=== PATIENT | female | born 1985 | race Caucasian/White ===

== ENCOUNTER 2019-09-25 05:43 | Inpatient (IN) ==
--- NOTE | 2019-09-24 13:44 | History and Physical Report ---
DATE OF ADMISSION: 09/25/2019 REASON FOR ADMISSION: Planned repeat section. BRIEF HISTORY: Olga is a 34-year-old G2, P1-0-0-1, who will be admitted at 40 weeks 5 days gestational age for planned repeat section. Of note, the patient has a prior section for breech presentation which was a low transverse incision on the uterus. Today, the patient reports that she is doing well without any significant complaints today. She did have a fall prior to coming, but had a reactive NST and is not having any symptoms of abruption otherwise. Patient was denying any contractions, vaginal bleeding, leakage of fluid, and reporting good movement at time of presentation today. COMPLICATIONS: 1. History of x1 performed for breech presentation. 2. BMI of 45. COURSE: The patient presented for care at her regular first trimester time. The patient's course has been relatively uncomplicated, has noted normal blood pressures throughout, negative glucosuria and proteinuria throughout her . PAST MEDICAL HISTORY: Significant for PCOS. PAST SURGICAL HISTORY: Significant for 1. x1. 2. Ankle surgery. 3. Cameron tooth extraction. FAMILY HISTORY: Noncontributory to current admission. SOCIAL HISTORY: The patient denies tobacco, alcohol or illicit drug use. PHYSICAL EXAMINATION: VITAL SIGNS: Blood pressure today 122/74. GENERAL: The patient is well appearing in no acute distress, alert and oriented x3. CARDIAC: Showed regular rate and rhythm. LUNGS: Showed no labored breathing. ABDOMEN: Soft, nontender, gravid with fundal height of 40 cm. The was noted to be cephalic on Damon's. The patient underwent an NST which was reactive. EXTREMITIES: Lower extremities were unremarkable bilaterally. ALLERGIES: 1. AMOXICILLIN. 2. CEPHALOSPORINS. CURRENT MEDICATIONS: vitamins. ASSESSMENT AND PLAN: Ms. Espinoza is a 34-year-old G2, P1-0-0-1, will be admitted at 40 weeks 5 days gestational age for planned section. 1. Fetus reactive NST today. 2. Labor. The patient not in labor. She would like a TOLAC if she does go into spontaneous labor. Otherwise, will continue to proceed with tomorrow morning. Consents were reviewed and signed in clinic today. All questions answered to patient's satisfaction. Risks, benefits and alternatives were discussed. 3. Vitals normal today. 4. hemorrhage risk, considered moderate risk secondary to the patient's prior section. 5. GBS negative. MTDD
[2019-09-25] MEDS ORDERED: LACTATED RINGER'S 1,000 ML IV SCH ×3 (06:00→11:24)
[2019-09-25] MEDS ORDERED: CLINDAMYCIN 900 MG in DEXTROSE 5% 50 ML IV SCH (06:00)
[2019-09-25] MEDS ORDERED: GENTAMICIN SULFATE 180 MG in DEXTROSE 5% 100 ML IV SCH (06:00)
[2019-09-25] MEDS ORDERED: CITRIC ACID/SODIUM CITRATE 15 ML UDC PO SCH ×2 (06:00)
[2019-09-25] MEDS ORDERED: SODIUM CHLORIDE 0.9% 250 ML IV PRN (06:06)
[2019-09-25 06:44] LABS: Basophils # (auto) 0.02 K/uL (0-0.2); Basophils % (auto) 0.2 %; Eosinophils # (auto) 0.09 K/uL (0-0.5); Eosinophils % (auto) 0.8 %; Hematocrit (blood only) 38.5 % (37-47); Hemoglobin 12.8 g/dL (12.0-16.0); Immature Granulocytes % (auto) 0.9 %; Lymphocytes # (auto) 1.79 K/uL (1.2-3.4); Lymphocytes % (auto) 16.9 %; Mean Corpuscular Hemoglobin 30.3 pg (25-34); Mean Corpuscular Volume 91.2 fL (80-100); Mean Platelet Volume 10.4 fL (7.4-10.4); Monocytes % (auto) 7.5 %; Neutrophils # (auto) 7.81 K/uL (1.4-6.5); Neutrophils % (auto) 73.7 %; Platelet Count 219 K/uL (130-400); RDW Coefficient of Variation 13.3 % (11.5-14.5); RDW Standard Deviation 44.2 fL (36.4-46.3); Red Blood Count 4.22 M/uL (4.2-5.4); White Blood Count 10.61 K/uL (4.8-10.8)
[2019-09-25 06:47] LABS: Mean Corpuscular Hgb Conc 33.2 g/dL (32-36)
[2019-09-25] MEDS ORDERED: fentaNYL citrate 100 MCG/2 ML VIAL ONE (06:56)
[2019-09-25] MEDS ORDERED: MoRPHine SULFATE PF 1 MG/ML 10 ML AMP/VIAL ONE (06:56)
--- NOTE | 2019-09-25 07:01 | Anesthesiology Consultation ---
Date of Service September 25, 2019 Assessment & Plan (1) Encounter for pre-operative examination: Chart Review Chart Review: Acceptable Risk for Surgery and Patient NOT seen in Pre Admission Testing Consults Requested none History Surgery Operation Date: 09/25/19 07:30 Proposed Procedures p Section in LD - Denny Naik MD Height/Weight Height: 5 ft 5 in Weight: 121.563 kg Allergies Allergy/AdvReac Type Severity Reaction Status Date / Time amoxicillin Allergy Hives Verified 09/24/19 08:42 cefaclor [From Ceclor] Allergy Hives Verified 09/24/19 08:42 Penicillins Allergy Hives Verified 09/25/19 06:00 Medications Home Medications Medication Instructions Recorded Confirmed Last Taken [id number] fum-folic [id number] 1 tab PO DAILY 04/23/19 09/25/19 09/24/19 20:30 Active Medications Generic Name Dose Route Start Last Admin Trade Name Freq PRN Reason Stop Dose Admin Gentamicin Sulfate 180 mg/ 104.5 mls @ 100 mls/hr 09/25/19 06:00 09/25/19 06:43 Dextrose IV 09/25/19 07:03 100 mls/hr PREOP KHOI Administration Past Medical History Medical History PCOS (polycystic ovarian syndrome) Exercise / Class Metabolic Activity II 4-5 Yardwork/Stairs/Walk up hill Past Family History Family History Grandfather (Paternal) Diabetes Father Hypertension Hypercholesterolemia Grandmother (Maternal) Ovarian cancer maternal great grandmother Multiple gestation maternal great grandmother Grandmother (Paternal) Thyroid disease Mother Thyroid disease Other Endometriosis Past Surgical History Surgical History History of ankle surgery Left History of section 2010 [facility]-breech S/P wisdom tooth extraction Past Anesthesia History No Hx of Anesthesia Complications and No Family Hx of Anesthesia Complications History of PONV No Hx of PONV and No Hx of Motion Sickness Social History Smoking Status: Never smoker Do You Dip or Chew Tobacco: No Hx Alcohol Use: No Alcohol type: wine and hard liquor alcohol intake frequency: holidays/special occasions only Hx Substance Use: No substance use type: does not use Physical Exam Vital Signs Last Vital Signs Temp 36.4 C L 09/25/19 06:03 Pulse 95 H 09/25/19 05:56 Resp 18 09/25/19 06:03 BP 125/77 09/25/19 06:03 Testing Laboratory Results 09/25/19 06:29
--- NOTE | 2019-09-25 07:33 | History & Physical Bridge Note ---
Date of Service September 25, 2019 History & Physical Bridge Note I have examined the patient, reviewed the History & Physical and in the interval since the performance of the History & Physical I have noted the following changes of clinical significance: no changes noted
[2019-09-25] MEDS ORDERED: KETOROLAC 30 MG/ML VIAL IV PRN (08:26)
[2019-09-25] MEDS ORDERED: MEPERIDINE HCL 25 MG/ML CARP IV PRN (08:26)
[2019-09-25] MEDS ORDERED: LACTATED RINGER'S 500 ML IV PRN (08:26)
[2019-09-25] MEDS ORDERED: DiphenhydrAMINE HCL 50 MG/ML VIAL IV PRN (08:26)
[2019-09-25] MEDS ORDERED: NALOXONE HCL 0.4 MG/1 ML VIAL/CARP IV PRN (08:26)
[2019-09-25] MEDS ORDERED: ONDANSETRON INJ 2 MG/ML 2 ML VIAL IV PRN (08:26)
[2019-09-25] MEDS ORDERED: ePHEDrine sulfate 50 MG/ML AMP IV PRN (08:26)
[2019-09-25] MEDS ORDERED: NALOXONE HCL 0.08 MG in SYRINGE 1.8 ML IV PRN (08:26)
[2019-09-25] MEDS ORDERED: NALOXONE HCL 1 MG in SODIUM CHLORIDE 0.9% 1000ML 1,000 ML IV PRN (08:26)
[2019-09-25] MEDS ORDERED: MoRPHine SULFATE 2 MG/ML CARP IV PRN (08:26)
[2019-09-25] MEDS ORDERED: MoRPHine SULFATE PF 1 MG/ML 10 ML AMP/VIAL INT SPINAL ONE (08:26)
[2019-09-25] MEDS ORDERED: NALBUPHINE HCL INJ 10 MG/ML AMP IV PRN (08:26)
[2019-09-25] MEDS ORDERED: SODIUM CHLORIDE 0.9% 1000ML 1,000 ML IV SCH (08:30)
[2019-09-25] MEDS ORDERED: DC INTRASPINAL MORPHINE SCH (08:30)
[2019-09-25] MEDS ORDERED: NO NARCOTICS OR SEDATIVES SCH (08:30)
[2019-09-25] MEDS ORDERED: OXYTOCIN 10 UNITS/ML VIAL ONE (08:32)
[2019-09-25] MEDS ORDERED: PHENYLEPHRINE 100MCG/ML 5ML SYR ONE (08:46)
[2019-09-25] MEDS ORDERED: ONDANSETRON INJ 2 MG/ML 2 ML VIAL ONE (08:50)
--- NOTE | 2019-09-25 09:35 | Post Operative Brief Note ---
PG Immediate Post Op with CF Date of Surgery September 25, 2019 Pre & Post Diagnosis Operation Date: 09/25/19 07:30 Pre-Op Diagnosis: Previous Section Term Post-Op Diagnosis: Same as Pre op I identified the patient and participated in the time-out.: Yes Procedure Operation Date: 09/25/19 07:30 Actual Procedures p Repeat Section in LD for a viable baby girl at [address] Naik[address]Not Applicable) - Denny Naik MD Surgeon Denny Naik MD Law Clerk Dr. Crespo Estimated Blood Loss 500 Findings Consistent with Post-Op Diagnosis Specimens Specimen Description: A: Placenta (Hold) B: Cord Blood Drains Rowe Catheter (inserted prior to procedure and draining clear yellow urine. Rowe being monitored by anesthesia during procedure.)
--- NOTE | 2019-09-25 09:45 | Anesthesiology Progress Note ---
Date of Service September 25, 2019 Anesthesia Post Procedure Vital Signs Vital Signs: Temp Pulse Resp BP Pulse Ox 09/25/19 09:42 73 99 09/25/19 09:37 86 119/60 98 09/25/19 06:03 36.4 C L 18 125/77 09/25/19 05:56 36.4 C L 95 H 18 125/77 Transfer of Care Handoff Completed per policy Notes Mental Status: alert / awake / arousable and participated in evaluation Patient Amnestic to Procedure: No Nausea / Vomiting: adequately controlled Pain: adequately controlled Airway Patency, RR, SpO2: stable & adequate BP & HR: stable & adequate Hydration State: stable & adequate Neuraxial Anesthesia: was administered and sensory block is resolving Anesthetic Complications: no major complications apparent and Pt Satisfied with anesthetic care
--- NOTE | 2019-09-25 11:08 | Operative Report ---
DATE OF OPERATION: 09/25/2019 PROCEDURE: Repeat low transverse section. SURGEON: Denny Naik MD TICKET AGENT: Chloé Crespo DO. PREOPERATIVE DIAGNOSES: 1. Single intrauterine at term. 2. History of prior with plan to repeat. POSTOPERATIVE DIAGNOSES: 1. Single intrauterine at term. 2. History of prior with plan to repeat. 3. Status post procedure. ESTIMATED BLOOD LOSS: 500 mL. DRAINS: Rowe catheter. URINE OUTPUT: Via Rowe catheter. COMPLICATIONS: None. FINDINGS: Viable female with weight pending and Apgars of 8 and 9 at 1 and 5 minutes respectively. DESCRIPTION OF PROCEDURE: The patient was taken to the operating room after consents were assured. Upon presentation, she was properly identified. Spinal anesthesia was obtained without difficulty. The patient was then prepped and draped in the normal sterile fashion. A preprocedural timeout was then performed. An incision was then made at the prior Pfannenstiel incision with a knife and was carried down to underlying fascia with the Bovie. The Bovie was then nicked at the midline with a knife and extended laterally in each direction with pickandres and Ball scissors. The fascia was then grasped with Kochers x2, elevated off the underlying rectus muscles using blunt dissection. The inferior aspect of the fascia was then grasped with Kochers x2 and elevated off the underlying rectus muscles using blunt dissection. The midline was then entered bluntly without difficulty and was placed on stretch to provide adequate room for delivery. Bladder blade was inserted. A bladder flap was created. A low transverse uterine incision was then made with a knife and the uterus was then entered bluntly. The membranes were then ruptured bluntly. The head of the was found to be in cephalic position and was delivered to the hysterotomy without difficulty. Body and shoulders quickly followed. was noted to be vigorous soon after delivery. There was noted to be meconium stained fluid at time of delivery. was noted to be vigorous upon delivery and 30-second delayed cord clamping was initiated. Cord was then double clamped and cut. was delivered to the awaiting nursery staff. Cord blood was then obtained. Attention was then turned to delivery of the placenta which was delivered intact, 3-vessel cord with gentle cord traction. The uterus was then exteriorized and several passes were made to remove any remaining membranes with a wet lap. The hysterotomy was then closed with 0 Vicryl in continuous running locked stitch. A second imbricating layer was then performed with 0 Vicryl with a single continuous stitch. The hysterotomy was then inspected and noted to be hemostatic. Posterior cul-de-sac was cleaned of clots and the debris. The uterus was then returned to the maternal abdomen and hysterotomy was reinspected and noted to begin to have continued hemostasis. Both right and left pericolic gutters were cleaned of clots and debris. The fascial muscle and subcutaneous layers were inspected and noted to be hemostatic. The fascial layer was then reapproximated with 0 Vicryl continuous running stitch. The subcutaneous layers were reapproximated with 2-0 plain in a single running stitch. The skin was reapproximated with 3-0 Vicryl on a Horace needle. Dermabond was then placed on top. Needle, sponge and instrument counts were correct at the completion of the case. Both mother and were stable in immediate post-delivery. I attest to the content of the Intraoperative Record and any orders documented therein. Any exception s are noted below.
[2019-09-25] MEDS ORDERED: DIPHTHERIA/TETANUS/PERTUSSIS 0.5 ML SYR/VIAL IM ONE (11:24)
[2019-09-25] MEDS ORDERED: HYDROCORTISONE ACETATE 25 MG SUPP PR PRN (11:24)
[2019-09-25] MEDS ORDERED: SUPERCREAM 0.870% 15 GM JAR EXT PRN (11:24)
[2019-09-25] MEDS ORDERED: MAGNESIUM HYDROXIDE SUSP 30 ML UDC PO PRN (11:24)
[2019-09-25] MEDS ORDERED: BENZOCAINE 20% AER SPR 82.5 GM CAN EXT PRN (11:24)
[2019-09-25] MEDS ORDERED: SENNA 8.6 MG TAB PO PRN (11:24)
[2019-09-25] MEDS: OXYTOCIN 30 UNITS in LACTATED RINGER'S 1,000 ML IV SCH ×2 (12:04→20:20)
[2019-09-25] MEDS: SIMETHICONE 80 MG CHEW PO SCH ×2 (14:38→20:37)
[2019-09-25] MEDS: DOCUSATE SODIUM 100 MG CAP PO SCH (20:37)
[2019-09-26] MEDS ORDERED: KETOROLAC 30 MG/ML VIAL IV PRN (02:27)
[2019-09-26] MEDS ORDERED: PROMETHAZINE HCL 25 MG in SODIUM CHLORIDE 0.9% 50 ML IV PRN (02:27)
[2019-09-26] MEDS ORDERED: DiphenhydrAMINE HCL 50 MG/ML VIAL IV PRN (02:27)
[2019-09-26] MEDS ORDERED: ONDANSETRON INJ 2 MG/ML 2 ML VIAL IV PRN (02:27)
[2019-09-26 07:05] LABS: Basophils # (auto) 0.02 K/uL (0-0.2); Basophils % (auto) 0.2 %; Hematocrit (blood only) 32.4 % (37-47); Hemoglobin 10.6 g/dL (12.0-16.0); Immature Granulocytes # (auto) 0.06 K/uL (0.00-0.02); Immature Granulocytes % (auto) 0.6 %; Lymphocytes # (auto) 1.29 K/uL (1.2-3.4); Lymphocytes % (auto) 12.6 %; Mean Corpuscular Hemoglobin 29.9 pg (25-34); Mean Corpuscular Hgb Conc 32.7 g/dL (32-36); Mean Corpuscular Volume 91.5 fL (80-100); Mean Platelet Volume 10.4 fL (7.4-10.4); Monocytes # (auto) 0.86 K/uL (0.11-0.59); Monocytes % (auto) 8.4 %; Neutrophils # (auto) 7.89 K/uL (1.4-6.5); Neutrophils % (auto) 77.2 %; Platelet Count 150 K/uL (130-400); RDW Coefficient of Variation 13.6 % (11.5-14.5); RDW Standard Deviation 45.5 fL (36.4-46.3); Red Blood Count 3.54 M/uL (4.2-5.4); White Blood Count 10.22 K/uL (4.8-10.8)
--- NOTE | 2019-09-26 07:08 | Obstetrical Progress Note ---
Date of Service September 26, 2019 Assessment & Plan (1) delivery delivered: Doing well. Nova out--void, encourage ambulation. adat. Work on breast feeding. Routine care. Day #:: 1 Subjective Ambulation: limited ambulation Voiding: nova catheter in place (just removed, no void yet) Passing Gas:: No Diet Tolerance:: clear liquids (no n/v this am, had an emesis yesterday) Lochia:: Small Feeding Type:: breast feeding Pain controlled Physical Exam Constitutional WD/WN, vitals as above Cardiovascular Extremities: + edema (trace); no calf tenderness Gastrointestinal (Abdomen) soft, nt, nd incision c/d/i ff/nt at u Psychiatric A+Ox3, euthymic affect Results & Data Vital Signs (Past 12 Hours) Vital Signs Temp Pulse Resp BP Pulse Ox 09/26/19 04:30 37.0 C 80 18 98/64 L 97 09/26/19 02:30 18 97 09/26/19 01:28 18 97 09/26/19 00:00 36.7 C 81 18 96/61 L 97 09/25/19 22:30 18 98 09/25/19 21:30 18 98 09/25/19 20:20 36.7 C 92 H 18 99/63 L 97 09/25/19 19:30 18 97
[2019-09-26] MEDS: FERROUS SULFATE 325 MG TAB PO SCH (07:27)
[2019-09-26] MEDS: OXYCODONE/ACETAMINOPHEN 5mg/325mg TAB PO PRN ×4 (07:27→22:06)
[2019-09-26] MEDS: SIMETHICONE 80 MG CHEW PO SCH ×4 (07:27→22:08)
[2019-09-26] MEDS: DOCUSATE SODIUM 100 MG CAP PO SCH ×2 (07:28→22:06)
[2019-09-26] MEDS: IBUPROFEN 600 MG TAB PO PRN ×4 (07:28→22:07)
[2019-09-26] MEDS: PRENATAL VITAMIN 1 TAB PO SCH (07:28)
[2019-09-26] MEDS ORDERED: bisacodyL 5 MG TABEC PO SCH (20:00)
[2019-09-27] MEDS: IBUPROFEN 600 MG TAB PO PRN ×4 (03:01→21:28)
[2019-09-27] MEDS: OXYCODONE/ACETAMINOPHEN 5mg/325mg TAB PO PRN ×4 (03:01→21:29)
[2019-09-27 06:04] LABS: Hematocrit (blood only) 32.8 % (37-47); Hemoglobin 10.8 g/dL (12.0-16.0)
[2019-09-27] MEDS ORDERED: bisacodyL 10 MG SUPP PR PRN (07:00)
[2019-09-27] MEDS: SIMETHICONE 80 MG CHEW PO SCH ×4 (08:15→19:41)
[2019-09-27] MEDS: FERROUS SULFATE 325 MG TAB PO SCH (08:15)
[2019-09-27] MEDS: DOCUSATE SODIUM 100 MG CAP PO SCH ×2 (08:15→19:41)
[2019-09-27] MEDS: PRENATAL VITAMIN 1 TAB PO SCH (08:15)
--- NOTE | 2019-09-27 08:16 | Obstetrical Progress Note ---
Date of Service September 27, 2019 Assessment & Plan (1) delivery delivered: 34yo s/p LTCS day 2 Doing well. Routine care Subjective Ambulation: ambulating normally Voiding: no voiding problems Passing Gas:: Yes Diet Tolerance:: regular diet Lochia:: Moderate Feeding Type:: breast feeding Current Pain Level(1-10): 2 Physical Exam Constitutional WD/WN, vitals as above Respiratory normal respiratory effort; no respiratory distress and no labored breathing Gastrointestinal (Abdomen) Inspection/Auscultation: abdomen normal to inspection and + abdominal surgical incision (C/D/I); abdomen not distended Percussion/Palpation: abdomen soft; abdomen nontender, no guarding and abdomen not rigid Genitourinary OB Exam Abdomen: + fundal height Fundus: + firm and + relation to umbilicus (Below); not tender and not boggy Results & Data Vital Signs (Past 12 Hours) Vital Signs Temp Pulse Resp BP Pulse Ox 09/26/19 23:30 36.8 C 86 14 102/63 96
--- NOTE | 2019-09-28 06:09 | Obstetrical Progress Note ---
Date of Service <Toshia Romanovaleria - Last Filed: 09/28/19 07:20> September 28, 2019 Assessment & Plan <Toshia Cosby - Last Filed: 09/28/19 07:20> (1) Encounter for care and examination after delivery: 34yo s/p LTCS day 3: - Doing well, anticipate discharge today. - Advised to use OTC hydrocortisone cream for adhesive allergy. No symptoms of anaphylaxis. Will call office if worsens. - Otherwise for follow up with Dr. Naik in 6 weeks. Day #:: 3 Subjective <Toshia Romanovaleria - Last Filed: 09/28/19 07:20> Olga is a 34 yo female ; POD # 3 following section delivery at 40 and 6 weeks; doing well this AM; no abdominal cramping/pain; voiding well, passing gas but no BM; tolerating meals overnight, able to ambulate some within the room. Some persistent spotting this morning. Pt is trying ; going well. Feeling itchy on her belly. Review of Systems Constitutional: denies fever, chills, sweats, headache Respiratory: denies SOB, difficulty breathing Cardiac: denies CP, chest palpitations, chest pressure Breast: denies breast pain : denies dysuria Physical Exam <Toshia Romanovaleria - Last Filed: 09/28/19 07:20> General: patient is alert and oriented, in NAD Cardiac: +S1/S2, no murmurs rubs or gallops Respiratory: lungs CTA b/l, anteriorly and posteriorly, no wheezes rales or rhonchi, no increased work of breathing, symmetric chest rise, no respiratory distress Abdomen: soft, NT, +bowel sounds. Skin with urticarial patches in the distribution of the adhesive for Uterus: uterine fundus firm, palpable below the level of the umbilicus. Incision intact, non-tender, non-erythematous, no weeping from incision site Lower Extremities: no LE edema or swelling, no deep calf pain, Kassy's sign negative b/l Results & Data <Toshia RomanoDO valeria - Last Filed: 09/28/19 07:20> Vital Signs (Past 12 Hours) Vital Signs Temp Pulse Resp BP Pulse Ox 09/27/19 23:00 36.7 C 75 16 114/69 09/27/19 19:45 36.9 C 86 20 109/72 97 Medications Administered Current Medications Benzocaine (Dermoplast Pain Relieving [place]) 1 appln EXT UD PRN PRN Reason: use on skin as needed Stop: 10/25/19 11:23 Cocaine HCl (Supercream 0.870%) 1 gm EXT UD PRN PRN Reason: hemmorrhoidal inflammation Stop: 10/09/19 11:23 Diphenhydramine HCl (Benadryl Capsule) 25 mg PO QID PRN PRN Reason: Itching Stop: 10/26/19 02:26 Diphenhydramine HCl (Benadryl) 25 mg IV QID PRN PRN Reason: Itching Stop: 10/26/19 02:26 Docusate Sodium (Colace) 100 mg PO DAILY@08,21 [facility] Stop: 10/25/19 20:59 Last Admin: 09/27/19 19:41 Dose: 100 mg Documented by: Ferrous Sulfate (Feosol) 325 mg PO DAILY@08 [facility] Stop: 10/26/19 07:59 Last Admin: 09/27/19 08:15 Dose: 325 mg Documented by: Hydrocortisone (Anusol Hc) 25 mg VA BID PRN PRN Reason: Hemorrhoids Stop: 10/25/19 11:23 Lactated Ringer's (Lr) 1,000 mls @ 125 mls/hr IV .Q8H KHOI Stop: 10/25/19 11:23 Promethazine HCl 25 mg/ Sodium (Chloride) 51 mls @ 204 mls/hr IV Q4H PRN PRN Reason: Nausea And Vomiting Stop: 10/26/19 02:26 Oxytocin 30 units/ Lactated (Ringer's) 1,003 mls @ 125 mls/hr IV .Q8H2M KHOI Stop: 10/25/19 11:59 Last Infusion: 09/25/19 22:37 Dose: 125 mls/hr Documented by: Ibuprofen (Motrin) 600 mg PO Q4H PRN PRN Reason: Pain Stop: 10/25/19 11:23 Last Admin: 09/27/19 21:28 Dose: 600 mg Documented by: Ketorolac Tromethamine (Toradol) 30 mg IV Q6H PRN PRN Reason: Pain Stop: 10/01/19 02:26 Magnesium Hydroxide (Milk Of Magnesia) 30 ml PO HS PRN PRN Reason: Constipation Stop: 10/25/19 11:23 Ondansetron HCl (Zofran) 4 mg IV Q4H PRN PRN Reason: Nausea And Vomiting Stop: 10/26/19 02:26 Oxycodone/Acetaminophen (Percocet 5mg/325mg) 1 - 2 tab PO Q4H PRN PRN Reason: Pain Stop: 10/10/19 02:26 Last Admin: 09/27/19 21:29 Dose: 1 tab Documented by: Digna Multivit/Chip Separator/Iron/Folic Ac ( Vitamin) 1 tab PO DAILY@08 [facility] Stop: 10/26/19 07:59 Last Admin: 09/27/19 08:15 Dose: 1 tab Documented by: Sennosides (Senokot) 17.2 mg PO HS PRN PRN Reason: Constipation Stop: 10/25/19 11:23 Simethicone (Mylicon) 80 mg PO DAILY@08,13,17,21 [facility] Stop: 10/25/19 12:59 Last Admin: 09/27/19 19:41 Dose: 80 mg Documented by: <Denny Naik MD - Last Filed: 09/28/19 07:28> Co-Signing Physician Notes Patient had a rash from drape adhesive. Discussed hydrocortisone cream. Otherwise doing well. Stable for discharge Resident Activity Tracking <Toshia Cosby DO - Last Filed: 09/28/19 07:20> Resident Involvement: Resident Care Provided Care Provided: OB Delivery
[2019-09-28] MEDS: OXYCODONE/ACETAMINOPHEN 5mg/325mg TAB PO PRN ×2 (06:20→10:14)
[2019-09-28] MEDS: IBUPROFEN 600 MG TAB PO PRN ×2 (06:20→10:15)
[2019-09-28] MEDS: PRENATAL VITAMIN 1 TAB PO SCH (08:27)
[2019-09-28] MEDS: SIMETHICONE 80 MG CHEW PO SCH (08:27)
[2019-09-28] MEDS: DOCUSATE SODIUM 100 MG CAP PO SCH (08:27)
[2019-09-28] MEDS: FERROUS SULFATE 325 MG TAB PO SCH (08:27)
--- NOTE | 2019-10-01 13:53 | Discharge Summary ---
PROCEDURES WHILE ADMITTED: Repeat low transverse section. HOSPITAL COURSE: The patient was admitted for the above noted procedure. The procedure was performed without complication or issue. The patient remained in house for 3 days for recovery which was without complication or concerns. The patient was stable for discharge on day 3 and at that point was requesting discharge and was discharged home in stable condition. Both written and verbal discharge instructions were provided to the patient with all questions answered to patient's satisfaction. BRITTANY
--- NOTE | 2019-10-05 11:49 | Consultation Report ---
DATE OF CONSULTATION: 09/28/2019 PROCEDURES WHILE ADMITTED: Repeat low transverse section. HOSPITAL COURSE: The patient was admitted for the above noted procedure. The procedure was performed without complication or concern or issue. The patient remained in house for approximately 3 days , recovering well without any complications or issues arising. The patient was stable for discharge on postoperative day #3 and was discharged home in stable condition. Both written and verbal discharge instructions were provided to the patient. All questions answered to patient's satisfaction.
== END 2019-09-28 11:30 | disposition home or self-care (01) | DRG 788 ==
LOC: 4S1 05:43 → MERGE 07:30 → EDSTATUS 07:30 → 4S2 12:17